=== PATIENT | male | born 1975 | race African-American/Black ===

== ENCOUNTER 2017-01-19 08:58 | Inpatient (IN) | payer BC ==
[2017-01-19] MEDS ORDERED: EPINEPHrine 1 MG/ML AMP ONE (09:06)
[2017-01-19] MEDS ORDERED: Albuterol Sulfate 2.5 mg/0.5 ml Neb ONE ×2 (09:25→09:27)
[2017-01-19] MEDS ORDERED: Albuterol Sulfate 2.5 mg/3 ml Neb ONE (09:27)
[2017-01-19 09:29] LABS: #Eosinphils 0.5 thou/uL (0.0-0.7); #Lymphocytes 2.5 thou/uL (1.20-3.40); #Neutrophils 5.5 thou/uL (1.40-6.50); %Basophils 0.1 % (0.0-1.0); %Eosinophils 5.2 % (0.0-10.0); %Lymphocytes 26.4 % (21.0-51.0); %Monocytes 10.9 % (0.0-10.0); Hematocrit 46.4 % (42.0-52.0); Mean Platelet Volume 8.3 fL (7.4-10.4); Red Blood Cell (RBC) Count 5.67 mill/uL (4.70-6.10); White Blood Cell (WBC) Count 9.5 thou/uL (4.8-10.8)
--- NOTE | 2017-01-19 09:34 | RAD ---
PORTABLE AP CHEST XRAY: DATE: 01/19/17. HISTORY: Dyspnea. Asthma exacerbation. COMPARISON: 11/02/16. FINDINGS: Cardiac silhouette and pulmonary vasculature are within normal limits. Lungs are hyperexpanded but r emain clear. There has been no interval change from the prior exam. IMPRESSION: 1. No acute cardiopulmonary process. 2. Stable hyperexpansion of the lungs. POS: [facility]
[2017-01-19 09:46] LABS: ALT (SGPT) 10 U/L (8-55); AST (SGOT) 17 U/L (5-34); Alkaline Phosphatase 40 U/L (40-150); Anion Gap 12 mmol/L (10-20); BUN (Urea Nitrogen) 9 mg/dL (8.9-20.6); Bilirubin, Total 0.2 mg/dL (0.2-1.2); Calc. Creatinine Clearance 0 mL/min (70-130); Carbon Dioxide 23 mmol/L (22-29); Chloride 108 mmol/L (98-107); Estimated GFR-MDRD Greater than 90; Globulin 2.8 g/dL (2.4-3.5)
[2017-01-19 09:50] LABS: Troponin I Less than 0.010 ng/mL (< 0.028)
[2017-01-19 09:58] LABS: Oxyhemoglobin 91.1 % (94.0-97.0); Sodium 141 mmol/L (135-148)
[2017-01-19 09:59] LABS: Modified Allen's Test POSITIVE; Vent NO
[2017-01-19 10:00] LABS: Mode CONT NEB
[2017-01-19] MEDS ORDERED: Albuterol Sulfate 2.5 mg/3 ml Neb NEB PRN (15:26)
[2017-01-19] MEDS ORDERED: Loratadine 10 MG TAB PO SCH (15:26)
[2017-01-19] MEDS ORDERED: Ondansetron ODT 4 MG TAB PO PRN (15:26)
[2017-01-19] MEDS ORDERED: Azithromycin 250 MG TAB PO SCH (15:30)
[2017-01-19 15:44] VITALS: BMI 20.7
[2017-01-19] MEDS: Mometasone/Formoterol 120 PUFF INHALER INH SCH (18:46)
[2017-01-19] MEDS ORDERED: Montelukast Sodium 10 mg Tablet PO SCH (21:00)
[2017-01-19] MEDS: Acetaminophen 325 MG TAB PO PRN (21:47)
[2017-01-20 01:31] LABS: Methamphetamine Detected (NotDetected)
[2017-01-20 01:32] LABS: Amphetamine Not Detected (NotDetected); Methadone Not Detected (NotDetected)
[2017-01-20 05:57] VITALS: TEMP 98.6
[2017-01-20] MEDS: Mometasone/Formoterol 120 PUFF INHALER INH SCH (06:33)
[2017-01-20] MEDS ORDERED: predniSONE 20 MG TAB PO SCH (08:00)
[2017-01-20] MEDS: Acetaminophen 325 MG TAB PO PRN (08:09)
[2017-01-20] MEDS ORDERED: Azithromycin 250 MG TAB PO SCH (09:00)
[2017-01-20 09:09] VITALS: BP 116/68
--- NOTE | 2017-01-20 11:41 | PDOC.FM ---
- Subjective Subjective: Pt feeling well and wanting to go home at this time. denies any wheezing or SOB. - Objective MAR Reviewed: Yes Vital Signs & Weight: Vital Signs (12 hours) Temp Pulse Resp BP Pulse Ox 01/20/17 08:00 98.6 F 78 16 116/68 99 01/20/17 06:33 90 14 01/20/17 04:00 98.6 F 90 16 131/69 98 01/20/17 02:38 98 01/20/17 00:59 97 16 98 01/20/17 00:00 98.8 F 91 16 109/63 97 Weight Weight 65.771 kg I&O: 01/19/17 01/20/17 01/21/17 06:59 06:59 06:59 Intake Total 840 Output Total 400 Balance 440 Result Diagrams: 01/19/17 09:15 01/19/17 09:15 <Teagan Joy - Last Filed: 01/20/17 11:45> - Objective Vital Signs & Weight: Vital Signs (12 hours) Temp Pulse Resp BP Pulse Ox 01/20/17 08:00 98.6 F 78 16 116/68 99 Weight Weight 65.771 kg I&O: 01/19/17 01/20/17 01/21/17 06:59 06:59 06:59 Intake Total 840 Output Total 400 Balance 440 Result Diagrams: 01/19/17 09:15 01/19/17 09:15 <Dinorah Polanco - Last Filed: 01/20/17 19:25> Phys Exam - Physical Examination Constitutional: NAD HEENT: PERRLA, moist MMs, oral pharynx no lesions Neck: no nodes, no JVD, supple faint end exp wheezes Cardiovascular: RRR, no significant murmur Gastrointestinal: soft, non-tender Musculoskeletal: no edema Neurological: non-focal Psychiatric: normal affect, A&O x 3 <Teagan Joy - Last Filed: 01/20/17 11:45> Dx/Plan (1) Asthma exacerbation Code(s): J45.901 - UNSPECIFIED ASTHMA WITH (ACUTE) EXACERBATION Status: Acute QualifierTitle: Asthma severity: moderate Asthma persistence: persistent Qualified Code(s): J45.41 - Moderate persistent asthma with (acute) exacerbation Plan: By history, pt moderate persistent asthma with acute exacerbation. Etiology likely multifactorial due to allergic or environmental causes and recent meth and MJ use. Will send rx for Breo to pharmacy for daily combo LABA + ICS use. Continue prednisone x 3 more days and f/u outpt with PCP. Recommend outpt PFTs to determine if any COPD component given prior tobacco use, and polysubtance abuse. (2) Polysubstance (excluding opioids) dependence Code(s): F19.20 - OTHER PSYCHOACTIVE SUBSTANCE DEPENDENCE, UNCOMPLICATED Status: Chronic Plan: counseled regarding cessation - Plan Plan: stable for discharge home today with outpt PCP follow up. <Teagan Joy - Last Filed: 01/20/17 11:45> Attending Addendum - Attending Addendum I personally evaluated the patient and discussed the management with Dr. Joy. I agree with the History, Examination, Assessment and Plan documented above with any addition or exceptions noted below. The patient's breathing is back to baseline. He has been counseled on drug abuse. Will be changed to Breo inhaler, steroids. <Dinorah Polanco - Last Filed: 01/20/17 19:25>
--- NOTE | 2017-01-20 23:23 | DIS-2 ---
ADMITTING ATTENDING: Olive Stack M.D. DISCHARGE ATTENDING: Dinorah Polanco M.D. DISCHARGING RESIDENT: Teagan Joy DO DISCHARGE DIAGNOSES: 1. Acute asthma exacerbation. 2. Polysubstance abuse. 3. Possible chronic obstructive pulmonary disease. 4. Prior tobacco abuse. DISCHARGE MEDICATIONS: 1. Continued medications. 2. DuoNebs 3 mL nebulized q.i.d. p.r.n. wheezing. 3. Montelukast 10 mg p.o. daily. 4. ProAir 1 puff inhaled q.4 h. p.r.n. shortness of breath or wheeze. 5. Triamcinolone cream applied topically twice daily p.r.n. rash. Patient also endorses at some point taking Serevent and Flovent daily. NEW MEDICATIONS: 1. Breo Ellipta one inhaled daily. 2. Claritin 10 mg p.o. daily. 3. Prednisone 40 mg p.o. q.a.m. x3 days further. HISTORY OF PRESENT ILLNESS AND HOSPITAL COURSE: The patient is a 42-year-old -[place] male w ith past medical history of childhood asthma, eczema and allergies as well as a significant history o f tobacco abuse, but has since quit. The patient also endorses daily marijuana use. He presented to [facility] via EMS after acute onset of shortness of breath on the day of adm ission which was 01/19/2017. The patient states he woke up in his normal state of health and quickly developed acute shortness of breath and wheezing and called 911. The patient was given 3 DuoNebs an d 125 of Solu-Medrol en route with minimal relief, but never became hypoxic. He also endorsed a sign ificant history for prior intubations due to asthma exacerbation with last time being 9 months prior to arrival. Upon admission, the patient was found to have clear lungs with poor air movement in the bases. He was tachypneic, but otherwise, satting 196% on room air and responded well to conservative therapy. The patient was admitted to the medical unit and nebulizers as well as steroids were oneyda nued for improvement. UDS was performed which was positive for methamphetamines as well as cannabino ids, and patient endorses daily marijuana use to help his nerves. On day of discharge, the patient w as feeling better and desired to go home. Recommended that the patient begin a combination inhaler w ith a LABA and inhale corticosteroid given his persistent symptoms. We also recommended the patient stop using street drugs in an effort to improve his respiratory status. With the image of his chest x-ray during his admission of hyperinflated lungs with flattened diaphragms, there is also some consi deration for obstructive disease and recommend outpatient PFTs to rule out a combination of chronic o bstructive pulmonary disease and asthma. DISPOSITION: Stable. DISCHARGE INSTRUCTIONS: 1. Location: Home. 2. Diet: Regular. 3. Activity: As tolerated with cardiopulmonary limitations. RECOMMENDATIONS: Marijuana and methamphetamine cessation with another PCP followup. FOLLOWUP: Follow up with primary care physician, Dr. Kole Mcgill within 1 week of discharge.
== END 2017-01-20 11:53 | disposition home or self-care (01) | DRG 191 ==
LOC: ERS 08:58 → T4-B 14:06
PROVIDERS: ADMIT Family Medicine; ATTEND Family Medicine
DX: J44.9 Chronic obstructive pulmonary disease, unspecified (principal); J45.41 Moderate persistent asthma with (acute) exacerbation; F19.10 Other psychoactive substance abuse, uncomplicated; F31.9 Bipolar disorder, unspecified; Z87.891 Personal history of nicotine dependence; F41.0 Panic disorder [episodic paroxysmal anxiety]
CPT/HCPCS: 36415; 71010; 80053; 80306; 82553; 82805; 84484; 85025; 93005; 94640; 94644; 94664; 94760; 96361; 96372; 96374; A4216; J0171; J7506; J7611; J7620

== ENCOUNTER 2017-02-15 15:02 | Emergency (ER) | payer BC ==
--- NOTE | 2017-02-15 15:35 | RAD ---
TWO VIEWS OF THE CHEST: 02/15/2017 COMPARISON: 12/04/2005 HISTORY: Cough and chills. FINDINGS: The lungs are hyperinflated, a stable finding. There is nonspecific interstitial linear density in b ilateral perihilar regions in both upper lobes, stable. No pneumothorax or pleural fluid is seen. T here is no lobar consolidation or alveolar edema. IMPRESSION: Hyperinflated lungs with increased linear interstitial density. Question a history of COPD. No foca l consolidation or alveolar edema. POS: [facility]
[2017-02-15 16:01] LABS: #Monocytes 0.8 thou/uL (0.11-0.59); #Neutrophils 3.4 thou/uL (1.40-6.50); %Basophils 0.9 % (0.0-1.0); %Eosinophils 0.9 % (0.0-10.0); %Lymphocytes 18.7 % (21.0-51.0); %Monocytes 14.5 % (0.0-10.0); Hematocrit 41.3 % (42.0-52.0); Mean Platelet Volume 7.8 fL (7.4-10.4); Red Blood Cell (RBC) Count 5.09 mill/uL (4.70-6.10); White Blood Cell (WBC) Count 5.3 thou/uL (4.8-10.8)
[2017-02-15 16:15] LABS: Lactic Acid - Sepsis 1.6 mmol/L (0.5-2.2)
[2017-02-15 16:20] LABS: ALT (SGPT) 11 U/L (8-55); AST (SGOT) 15 U/L (5-34); Alkaline Phosphatase 32 U/L (40-150); Anion Gap 14 mmol/L (10-20); BUN (Urea Nitrogen) 10 mg/dL (8.9-20.6); Bilirubin, Total 0.4 mg/dL (0.2-1.2); Calc. Creatinine Clearance 0 mL/min (70-130); Calcium 8.9 mg/dL (7.8-10.44); Carbon Dioxide 23 mmol/L (22-29); Chloride 105 mmol/L (98-107); Estimated GFR-MDRD 76; Globulin 2.5 g/dL (2.4-3.5); Protein, Total 6.4 g/dL (6.0-8.3)
[2017-02-15] MEDS ORDERED: methylPREDNISolone Sod Succ/PF 125 MG/2 ML VIAL ONE (16:29)
[2017-02-15] MEDS ORDERED: Acetaminophen 500 MG TAB ONE (18:17)
== END 2017-02-15 18:18 | disposition home or self-care (01) ==
LOC: ERS 15:02
DX: J18.9 Pneumonia, unspecified organism (principal); J44.1 Chronic obstructive pulmonary disease with (acute) exacerbation; Z87.891 Personal history of nicotine dependence; Z79.899 Other long term (current) drug therapy
CPT/HCPCS: 36415; 71020; 80053; 83605; 85025; 87040; 87149; 94640; 96361; 96374; J2930; J7620

== ENCOUNTER 2017-06-17 09:50 | Emergency (ER) | payer BC, SELFPAY ==
[2017-06-17 11:20] LABS: #Lymphocytes 0.7 thou/uL (1.20-3.40); #Monocytes 0.1 thou/uL (0.11-0.59); #Neutrophils 4.8 thou/uL (1.40-6.50); %Basophils 0.1 % (0.0-1.0); %Eosinophils 0.2 % (0.0-10.0); %Lymphocytes 12.4 % (21.0-51.0); %Monocytes 1.5 % (0.0-10.0); %Neutrophils 85.9 % (42.0-75.0); Hemoglobin 12.7 g/dL (14.0-18.0); Mean Corpuscular HGB CONC 31.4 g/dL (32.0-36.0); Mean Corpuscular Hemoglobin 25.4 pg (27.0-31.0); Mean Corpuscular Volume 80.9 fl (80.0-94.0); Mean Platelet Volume 7.9 fL (7.4-10.4); Platelet Count 317 thou/uL (130-400); RBC Distribution Width 19.2 % (11.5-14.5); Red Blood Cell (RBC) Count 4.99 mill/uL (4.70-6.10); White Blood Cell (WBC) Count 5.6 thou/uL (4.8-10.8)
[2017-06-17 12:17] LABS: ALT (SGPT) 14 U/L (8-55); AST (SGOT) 19 U/L (5-34); Albumin 4.8 g/dL (3.5-5.0); Alkaline Phosphatase 39 U/L (40-150); Anion Gap 17 mmol/L (10-20); BUN (Urea Nitrogen) 15 mg/dL (8.9-20.6); Bilirubin, Total 0.4 mg/dL (0.2-1.2); CK (CPK) 583 U/L (30-200); Calc. Creatinine Clearance 0 mL/min (70-130); Calcium 10.3 mg/dL (7.8-10.44); Carbon Dioxide 23 mmol/L (22-29); Chloride 102 mmol/L (98-107); Estimated GFR-MDRD Greater than 90; Globulin 2.9 g/dL (2.4-3.5); Glucose 114 mg/dL (70-105); Potassium 4.6 mmol/L (3.5-5.1); Protein, Total 7.7 g/dL (6.0-8.3); Sodium 137 mmol/L (136-145)
[2017-06-17 12:18] LABS: CKMB 1.6 ng/mL (0-6.6); Troponin I Less than 0.010 ng/mL (< 0.028)
--- NOTE | 2017-06-17 12:41 | RAD ---
CHEST ONE VIEW: HISTORY: A 42-year-old male with a history of chest pain and asthma exacerbation. COMPARISON: 01/19/2017 FINDINGS: Heart size is within normal limits. Lungs are clear. Monitor leads overly the chest. No pneumonia, edema, or pleural effusion. IMPRESSION: No acute intrathoracic disease. POS: [facility]
== END 2017-06-17 13:17 | disposition home or self-care (01) ==
LOC: ERS 09:50
DX: R07.89 Other chest pain (principal); J45.909 Unspecified asthma, uncomplicated; Z87.891 Personal history of nicotine dependence; Z79.899 Other long term (current) drug therapy
CPT/HCPCS: 36415; 71045; 80053; 82553; 84484; 85025; 93005

== ENCOUNTER 2017-07-12 21:36 | Emergency (ER) | payer BC ==
[2017-07-12] MEDS ORDERED: Ketorolac Tromethamine 30 MG/ML VIAL ONE (22:05)
[2017-07-12] MEDS ORDERED: Ondansetron ODT 4 MG TAB ONE (22:05)
[2017-07-12] MEDS ORDERED: Albuterol Sulfate 2.5 mg/3 ml Neb ONE (22:15)
--- NOTE | 2017-07-12 22:35 | RAD ---
CHEST TWO VIEWS: HISTORY: Sore throat. Cough. COMPARISON: Chest radiograph from 02/15/2017. FINDINGS: There are some punctate nodules within the periphery of the right middle lobe and of the lingula. No focal air space consolidation, pneumothorax, or effusion. The cardiac silhouette and mediastinal co ntour is within normal limits. No acute osseous abnormality. IMPRESSION: Punctate peripheral nodules, may be sequela of scarring or pulmonary vessels seen enface. No focal c onsolidation. POS: [facility]
[2017-07-12] MEDS ORDERED: predniSONE 20 MG TAB ONE (22:48)
[2017-07-12] MEDS ORDERED: Acetaminophen 500 MG TAB ONE (23:13)
== END 2017-07-12 23:37 | disposition home or self-care (01) ==
LOC: ERS 21:36
DX: J45.901 Unspecified asthma with (acute) exacerbation (principal); B34.9 Viral infection, unspecified; R19.7 Diarrhea, unspecified; J44.9 Chronic obstructive pulmonary disease, unspecified; Z87.891 Personal history of nicotine dependence
CPT/HCPCS: 71046; 87081; 87430; 94640; 96372; J1885; J7506; J7611; J7620; Q0162

== ENCOUNTER 2019-04-15 05:55 | Emergency (ER) | payer BC | END 2019-04-15 06:33 | disposition home or self-care (01) | LOC: ERS 05:55 | DX: J44.1 Chronic obstructive pulmonary disease with (acute) exacerbation (principal); Z87.891 Personal history of nicotine dependence; Z79.51 Long term (current) use of inhaled steroids | CPT/HCPCS: 93005; 94640 ==